=== PATIENT | female | born 1990 | race American Indian/Alaskan Native ===

== ENCOUNTER 2017-01-10 16:36 | Emergency (ER) | payer SELFPAY ==
[2017-01-10 17:13] LABS: Basophils % (Auto) 0.5 % (0.0-1.8); Eosinophils % (Auto) 0.4 % (0.0-4.3); Hematocrit 41.9 % (30.3-42.9); Mean Corpuscular HGB Conc 34 % (30-34); Mean Corpuscular Hemoglobin 32 pg (28-32); Mean Corpuscular Volume 96 fl (79-97); Platelet Count 235 K/mm3 (140-440); Red Blood Count 4.37 M/mm3 (3.65-5.03); Red Cell Distribution Width 13.3 % (13.2-15.2); White Blood Count 7.2 K/mm3 (4.5-11.0)
[2017-01-10 17:33] LABS: Alanine Aminotransferase 11 units/L (7-56); Albumin 4.3 g/dL (3.9-5); Albumin/Globulin Ratio 1.3 %; Alkaline Phosphatase 50 units/L (35-129); Anion Gap 21 mmol/L; BUN/Creatinine Ratio 17; Blood Urea Nitrogen 17 mg/dL (7-17); Calcium 9.1 mg/dL (8.4-10.2); Carbon Dioxide 21 mmol/L (22-30); Chloride 101.5 mmol/L (98-107); Glucose 102 mg/dL (65-100); Potassium 4.1 mmol/L (3.6-5.0); Sodium 139 mmol/L (137-145); Total Protein 7.5 g/dL (6.3-8.2)
--- NOTE | 2017-01-10 18:52 | Cat Scan Report ---
FINAL REPORT PROCEDURE: CT HEAD/BRAIN WO CON TECHNIQUE: Computerized tomography of the head was performed without contrast material. HISTORY: syncope COMPARISON: No prior studies are available for comparison. FINDINGS: Brain: Brain density appears normal. No evidence of intracranial hemorrhage. No parenchymal hemorrhage, mass lesions or mass effect are seen. No abnormal extraxial fluid collects or masses are seen. Ventricles: Ventricles are normal size and are midline. Bone Windows: No evidence of skull fracture. Paranasal sinuses: Visualized portions of the paranasal sinuses are clear. Mastoid air cells: Clear IMPRESSION: Negative examination
[2017-01-11 01:31] VITALS: BP 115/58
[2017-01-11] MEDS ORDERED: NACL 0.9% 1000 ML 1,000 ML IV ONE (01:56)
[2017-01-11] MEDS ORDERED: TORADOL IV ONE (01:57)
[2017-01-11] MEDS ORDERED: REGLAN IV ONE (01:57)
--- NOTE | 2017-01-11 01:58 | Emergency Department Report ---
ED Syncope HPI - General Chief Complaint: Syncope Stated Complaint: SORE THROAT Time Seen by Provider: 01/11/17 01:43 - History of Present Illness Initial Comments: 26-year-old female brought in by EMS with complaints of syncope while at work. She was recently admitted at [facility] for meningitis and discharged after 4 days of hospitalization. She recalls experiencing headache prior to having a syncopal episode. While in the ER, she is back to her baseline. Timing/Prior Episodes: single episode today Precipitating Factors: Positive: blurred vision (headaches), lightheadedness, other Loss of Consciousness: prolonged (minutes) Current Symptoms: back to normal, headache, injury (pain in her left forearm), other (pain in her left forearm). denies: lightheadedness, loss of bladder control, loss of bowel control - Related Data Allergies/Adverse Reactions: Allergies seafood Allergy (Uncoded 01/10/17 16:41) Angioedema Home Medications: Ambulatory Orders Albuterol Sulfate [Ventolin HFA] 2 puff IH Q4H PRN #1 hfa.aer.ad 12/18/13 Azithromycin [Zithromax Z-MICHELE] 250 mg PO DAILY #6 tablet 12/18/13 Ibuprofen [Motrin 800 MG tab] 800 mg PO Q8H #30 tablet 12/18/13 guaiFENesin/CODEINE [Robitussin AC] 5 ml PO Q6H PRN #8 oz 12/18/13 predniSONE [Deltasone] 50 mg PO QDAY #5 tab 12/18/13 Ibuprofen [Motrin 600 MG tab] 600 mg PO Q6HR PRN #30 tablet 01/11/17 ED Review of Systems ROS: Stated complaint: SORE THROAT Other details as noted in HPI Comment: All other systems reviewed and negative Constitutional: see HPI, malaise, weakness. denies: diaphoresis, fever Eyes: vision change (blurred vision). denies: eye pain, eye discharge ENT: denies: throat pain, dental pain, hearing loss, epistaxis Respiratory: denies: cough, orthopnea, shortness of breath Cardiovascular: syncope. denies: chest pain, palpitations, dyspnea on exertion , orthopnea, edema Endocrine: no symptoms reported Gastrointestinal: denies: nausea, vomiting, diarrhea, constipation, hematemesis Genitourinary: denies: urgency, dysuria, frequency, hematuria, discharge Musculoskeletal: denies: back pain, joint swelling, arthralgia, myalgia Skin: denies: lesions, change in color, change in hair/nails, pruritus Neurological: headache, weakness. denies: abnormal gait, vertigo ED Past Medical Hx - Past Medical History Previous Medical History?: No - Surgical History Hx Cholecystectomy: Yes - Social History Smoking Status: Never Smoker Substance Use Type: None - Medications Home Medications: Home Medications Medication Instructions Recorded Confirmed Last Taken Type Albuterol Sulfate [Ventolin HFA] 2 puff IH Q4H PRN #1 hfa.aer.ad 12/18/13 Unknown Rx Azithromycin [Zithromax Z-MICHELE] 250 mg PO DAILY #6 tablet 12/18/13 Unknown Rx Ibuprofen [Motrin 800 MG tab] 800 mg PO Q8H #30 tablet 12/18/13 Unknown Rx guaiFENesin/CODEINE [Robitussin AC] 5 ml PO Q6H PRN #8 oz 12/18/13 Unknown Rx predniSONE [Deltasone] 50 mg PO QDAY #5 tab 12/18/13 Unknown Rx Ibuprofen [Motrin 600 MG tab] 600 mg PO Q6HR PRN #30 tablet 01/11/17 Unknown Rx ED Physical Exam - General Limitations: No Limitations General appearance: alert - Head Head exam: Present: atraumatic, normocephalic, normal inspection - Eye Eye exam: Present: normal appearance, PERRL, EOMI, other (patient has strabismus ). Absent: scleral icterus, conjunctival injection, nystagmus - ENT ENT exam: Present: normal exam, normal orophraynx, mucous membranes moist - Neck Neck exam: Present: normal inspection, full ROM. Absent: tenderness, meningismus, lymphadenopathy, thyromegaly - Respiratory Respiratory exam: Present: normal lung sounds bilaterally. Absent: respiratory distress, wheezes, rales, rhonchi, chest wall tenderness, accessory muscle use, decreased breath sounds - Cardiovascular Cardiovascular Exam: Present: regular rate, tachycardia, normal heart sounds - GI/Abdominal GI/Abdominal exam: Present: soft, normal bowel sounds. Absent: distended, tenderness, guarding, rebound, rigid, hyperactive bowel sounds, hypoactive bowel sounds, organomegaly, mass, bruit, pulsatile mass - Rectal Rectal exam: Present: deferred - Extremities Exam Extremities exam: Present: full ROM, tenderness (tenderness left forearm), normal capillary refill, other (tenderness left forearm) - Back Exam Back exam: Present: normal inspection, full ROM. Absent: CVA tenderness (L), muscle spasm, paraspinal tenderness - Neurological Exam Neurological exam: Present: alert, oriented X3, CN II-XII intact, motor sensory deficit - Skin Skin exam: Present: warm, dry, normal color ED Course Vital Signs 01/10/17 01/11/17 01/11/17 16:42 01:30 01:36 Temperature 99.5 F 98 F Pulse Rate 102 H 62 Respiratory 18 16 16 Rate Blood Pressure 117/75 Blood Pressure 115/58 [Left] O2 Sat by Pulse 98 100 100 Oximetry ED Medical Decision Making - Lab Data Result diagrams: 01/10/17 16:55 01/10/17 16:55 Critical Care Time: No Critical care attestation.: If time is entered above; I have spent that time in minutes in the direct care of this critically ill patient, excluding procedure time. ED Disposition Clinical Impression: Syncope Disposition: DC-01 TO HOME OR SELFCARE Is pt being admited?: No Does the pt Need Aspirin: No Condition: Stable Instructions: Syncope (ED) Additional Instructions: Follow up with your. Primary care in next 3 days. Return to care for problem gets worse Prescriptions: Ibuprofen [Motrin 600 MG tab] 600 mg PO Q6HR PRN #30 tablet PRN Reason: Pain Referrals: PRIMARY CARE, [Primary Care Provider] - 3-5 Days Time of Disposition: 03:50
[2017-01-11 03:12] LABS: Urine Drugs of Abuse Note Disclamer
[2017-01-11 03:27] LABS: Bilirubin,Urine NEG (Negative); Blood,Urine NEG (Negative); Ketones,Urine NEG (Negative); Leukocyte Esterase,Urine NEG (Negative); Mucus,Urine FEW /HPF; Nitrite,Urine NEG (Negative); Protein,Urine <15 mg/dL mg/dL (Negative); RBC,Urine < 1.0 /HPF (0.0-6.0); Urobilinogen,Urine < 2.0 mg/dL (<2.0)
--- NOTE | 2017-01-11 08:10 | XRay Report ---
FINAL REPORT EXAM: XR FOREARM LT HISTORY: injury to left forearm COMPARISONS: None. FINDINGS: Three portable views left forearm No radiodense foreign body, bone lesion, periosteal reaction, or fracture. No deformity or gross malalignment. IMPRESSION: No left forearm fracture or gross malalignment.
== END 2017-01-11 04:17 | disposition home or self-care (01) ==
LOC: ED 16:36
DX: R55 Syncope and collapse (principal); R51 Headache; Z91.013 Allergy to seafood
CPT/HCPCS: 36415; 70450; 73090; 80053; 80307; 81001; 81025; 82140; 83735; 84703; 85025; 96361; 96374; 96375; 99284; J1885; J2765; J7030

== ENCOUNTER 2017-02-04 17:59 | Emergency (ER) | payer SELFPAY ==
[2017-02-04 19:04] LABS: Basophils % (Auto) 0.5 % (0.0-1.8); Eosinophils % (Auto) 0.5 % (0.0-4.3); Hematocrit 47.1 % (30.3-42.9); Hemoglobin 15.9 gm/dl (10.1-14.3); Mean Corpuscular HGB Conc 34 % (30-34); Mean Corpuscular Hemoglobin 33 pg (28-32); Mean Corpuscular Volume 97 fl (79-97); Platelet Count 202 K/mm3 (140-440); Red Blood Count 4.88 M/mm3 (3.65-5.03); Red Cell Distribution Width 13.7 % (13.2-15.2); White Blood Count 9.7 K/mm3 (4.5-11.0)
[2017-02-04 19:13] LABS: Anion Gap 20 mmol/L; BUN/Creatinine Ratio 20; Blood Urea Nitrogen 14 mg/dL (7-17); Calcium 8.6 mg/dL (8.4-10.2); Carbon Dioxide 23 mmol/L (22-30); Chloride 101.1 mmol/L (98-107); Glucose 131 mg/dL (65-100); Potassium 4.3 mmol/L (3.6-5.0); Sodium 140 mmol/L (137-145)
[2017-02-04 19:14] LABS: Bilirubin,Urine NEG (Negative); Blood,Urine MOD (Negative); Ketones,Urine NEG (Negative); Leukocyte Esterase,Urine TR (Negative); Mucus,Urine 3+ /HPF; Nitrite,Urine NEG (Negative); Protein,Urine <15 mg/dL mg/dL (Negative)
[2017-02-04] MEDS ORDERED: TORADOL IV ONE (23:07)
[2017-02-04] MEDS ORDERED: TORADOL IM ONE (23:16)
--- NOTE | 2017-02-04 23:16 | Emergency Department Report ---
ED Fall HPI - General Chief Complaint: Anxiety Stated Complaint: FALL,HEAD TRAUMA Time Seen by Provider: 02/04/17 22:42 Source: patient Mode of arrival: Ambulatory Limitations: No Limitations - History of Present Illness Initial Comments: 26 YO FEMALE C/O FALLING YESTERDAY AND STRIKING HER HEAD. SHE HURTS ON THE TEMPORAL SIDE AND FRIGHT SIDE OF HER FACE. SHE ALSO C/O CHEST PAIN AND POSSIBLE ANXIETY ATTACK. SHE WAS NOT SHORT OF BREATH, NO N/V/NOT DIAPHORETIC MD Complaint: fall -: days(s) (1) Fall From: standing Place Fall Occurred: home Loss of Consciousness: yes Prolonged Down Time?: no Symptoms Prior to Fall: none Location: head, face Severity scale (0 -10): 3 Quality: aching Associated Symptoms: headache - Related Data Previous Rx's Medication Instructions Recorded Last Taken Type Albuterol Sulfate [Ventolin HFA] 2 puff IH Q4H PRN #1 hfa.aer.ad 12/18/13 Unknown Rx Azithromycin [Zithromax Z-MICHELE] 250 mg PO DAILY #6 tablet 12/18/13 Unknown Rx Ibuprofen [Motrin 800 MG tab] 800 mg PO Q8H #30 tablet 12/18/13 Unknown Rx guaiFENesin/CODEINE [Robitussin AC] 5 ml PO Q6H PRN #8 oz 12/18/13 Unknown Rx predniSONE [Deltasone] 50 mg PO QDAY #5 tab 12/18/13 Unknown Rx Ibuprofen [Motrin 600 MG tab] 600 mg PO Q8HR PRN #30 tablet 02/05/17 Unknown Rx Allergies Allergy/AdvReac Type Severity Reaction Status Date / Time seafood Allergy Angioedema Uncoded 01/10/17 16:41 ED Review of Systems ROS: Stated complaint: FALL,HEAD TRAUMA Other details as noted in HPI Constitutional: denies: chills, fever Eyes: denies: eye pain, eye discharge, vision change ENT: denies: ear pain, throat pain Respiratory: denies: cough, shortness of breath, wheezing Cardiovascular: denies: chest pain, palpitations Endocrine: no symptoms reported Gastrointestinal: denies: abdominal pain, nausea, diarrhea Genitourinary: denies: urgency, dysuria, discharge Musculoskeletal: denies: back pain, joint swelling, arthralgia Skin: denies: rash, lesions Neurological: denies: headache, weakness, paresthesias Psychiatric: anxiety. denies: depression Hematological/Lymphatic: denies: easy bleeding, easy bruising ED Past Medical Hx - Past Medical History Previous Medical History?: Yes Hx Psychiatric Treatment: Yes (anxiety) - Surgical History Past Surgical History?: Yes Hx Cholecystectomy: Yes - Social History Smoking Status: Never Smoker Substance Use Type: Prescribed - Medications Home Medications: Home Medications Medication Instructions Recorded Confirmed Last Taken Type Albuterol Sulfate [Ventolin HFA] 2 puff IH Q4H PRN #1 hfa.aer.ad 12/18/13 Unknown Rx Azithromycin [Zithromax Z-MICHELE] 250 mg PO DAILY #6 tablet 12/18/13 Unknown Rx Ibuprofen [Motrin 800 MG tab] 800 mg PO Q8H #30 tablet 12/18/13 Unknown Rx guaiFENesin/CODEINE [Robitussin AC] 5 ml PO Q6H PRN #8 oz 12/18/13 Unknown Rx predniSONE [Deltasone] 50 mg PO QDAY #5 tab 12/18/13 Unknown Rx Ibuprofen [Motrin 600 MG tab] 600 mg PO Q8HR PRN #30 tablet 02/05/17 Unknown Rx ED Physical Exam - General Limitations: No Limitations General appearance: alert, in no apparent distress - Head Head exam: Present: atraumatic, normocephalic, other (TENDER OVER RIGTH MAXILLARY SINUS, RIGHT ETHMOID SINUS) - Eye Eye exam: Present: normal appearance, EOMI, periorbital tenderness. Absent: scleral icterus, conjunctival injection - ENT ENT exam: Present: mucous membranes moist - Neck Neck exam: Present: normal inspection, full ROM. Absent: tenderness - Respiratory Respiratory exam: Present: normal lung sounds bilaterally. Absent: respiratory distress, wheezes, chest wall tenderness - Cardiovascular Cardiovascular Exam: Present: regular rate, normal rhythm. Absent: systolic murmur, diastolic murmur, rubs, gallop - GI/Abdominal GI/Abdominal exam: Present: soft, normal bowel sounds. Absent: distended, tenderness - Rectal Rectal exam: Present: deferred - Extremities Exam Extremities exam: Present: normal inspection, full ROM - Back Exam Back exam: Present: normal inspection, full ROM - Neurological Exam Neurological exam: Present: alert, oriented X3, CN II-XII intact - Psychiatric Psychiatric exam: Present: normal affect, normal mood. Absent: anxious - Skin Skin exam: Present: warm, dry, intact, normal color. Absent: rash ED Course Vital Signs 02/04/17 02/04/17 02/04/17 18:10 20:48 21:01 Temperature 97.9 F Pulse Rate 125 H 71 72 Respiratory 16 18 Rate Blood Pressure 115/79 106/61 O2 Sat by Pulse 99 96 Oximetry 02/04/17 02/04/17 02/04/17 21:08 21:15 21:23 Temperature Pulse Rate 73 70 68 Respiratory 15 15 20 Rate Blood Pressure 106/61 106/61 106/61 O2 Sat by Pulse 99 99 98 Oximetry 02/04/17 02/04/17 02/04/17 21:31 21:33 21:36 Temperature 98.3 F Pulse Rate 71 Respiratory 18 18 Rate Blood Pressure 101/60 O2 Sat by Pulse 98 99 Oximetry 02/04/17 02/04/17 02/04/17 21:45 22:01 22:15 Temperature Pulse Rate 71 80 66 Respiratory 20 11 L 25 H Rate Blood Pressure 101/60 101/60 101/60 O2 Sat by Pulse 98 98 98 Oximetry 02/04/17 22:30 Temperature Pulse Rate 75 Respiratory 20 Rate Blood Pressure 101/60 O2 Sat by Pulse Oximetry ED Medical Decision Making - Lab Data Result diagrams: 02/04/17 18:39 02/04/17 18:39 - EKG Data Rate: tachycardia (HR 104) - Radiology Data Radiology results: report reviewed (CT HEAD:NORMAL, NO SINUSITIS, NO FRACTURES) Critical care attestation.: If time is entered above; I have spent that time in minutes in the direct care of this critically ill patient, excluding procedure time. ED Disposition Clinical Impression: Anxiety Head injury, acute, with loss of consciousness Qualifiers: Encounter type: initial encounter Qualified Code(s): S06.9X9A - Unspecified intracranial injury with loss of consciousness of unspecified duration, initial encounter Disposition: - TO HOME OR SELFCARE Is pt being admited?: No Does the pt Need Aspirin: No Condition: Stable Instructions: Minor Head Injury (ED), Anxiety (ED) Prescriptions: Ibuprofen [Motrin 600 MG tab] 600 mg PO Q8HR PRN #30 tablet PRN Reason: Pain Referrals: PRIMARY CARE,MD [Primary Care Provider] - 3-[address] [facility] [Outside] - 3-5 Days Time of Disposition: 03:21
[2017-02-05 00:52] VITALS: BP 101/60
--- NOTE | 2017-02-05 01:44 | Cat Scan Report ---
FINAL REPORT PROCEDURE: CT HEAD/BRAIN WO CON TECHNIQUE: Computerized tomography of the head was performed without contrast material. HISTORY: sycope episode with head injury COMPARISON: No prior studies are available for comparison. FINDINGS: Skull and scalp: Normal. Paranasal sinuses: Normal. Ventricles and subarachnoid spaces: Normal. Cerebrum: No evidence of hemorrhage, acute infarction or mass . Cerebellum and brainstem: No evidence of hemorrhage, acute infarction or mass. Vasculature: Normal. Comments: None. IMPRESSION: Normal Examination
--- NOTE | 2017-02-05 07:12 | XRay Report ---
Chest 2 views: History: Rule out aspiration from syncope. Findings: Normal cardiomediastinal silhouette. Trachea is midline. No consolidation, pneumothorax or pleural effusion. Impression: No acute cardiopulmonary findings.
== END 2017-02-05 01:44 | disposition home or self-care (01) ==
LOC: ED 17:59
DX: S06.9X9A Unspecified intracranial injury with loss of consciousness of unspecified duration, initial encounter (principal); F41.9 Anxiety disorder, unspecified; Z91.013 Allergy to seafood; W18.30XA Fall on same level, unspecified, initial encounter; Y93.89 Activity, other specified; Y92.89 Other specified places as the place of occurrence of the external cause; Y99.8 Other external cause status
CPT/HCPCS: 36415; 70450; 71020; 80048; 81001; 81025; 84484; 85025; 93005; 93010; 96372; 99285; J1885